=== PATIENT | male | born 1995 ===

== ENCOUNTER 2017-07-01 21:19 | Emergency (ER) | payer BC ==
[2017-07-01 23:03] VITALS: BP 135/93
[2017-07-02] MEDS ORDERED: TORADOL IM ONE (04:22)
--- NOTE | 2017-07-02 04:25 | Emergency Department Report ---
ED Headache HPI - General Chief Complaint: Headache Stated Complaint: H/A Time Seen by Provider: 07/02/17 03:14 Source: patient Exam Limitations: no limitations - History of Present Illness Initial Comments: This is a 21-year-old -[place] male who presents with a migraine that started around 1900. Patient reports pain is frontal and occipital region. It is constant and out of 10 on pain scale and nonradiating. He has not tried taking anything improved symptoms. Reports nausea and vomiting and sensitivity to light. Nausea and vomiting has resolved but he is currently still having sensitivity to light with headache. Denies visual changes, SOB, chest pain, and fever. Timing/Duration: 4-6 hours Quality: severe, throbbing Head Injury Location: frontal, occipital Recent Head Trauma: no recent headache/trauma Modifying Factors: improves with: exposure to light, rest Associated Symptoms: fever/chills Allergies/Adverse Reactions: Allergies No Known Allergies Allergy (Unverified 07/01/17 22:59) Home Medications: Ambulatory Orders Naproxen [Naprosyn] 500 mg PO BID PRN #20 tablet 07/02/17 ED Review of Systems ROS: Stated complaint: H/A Other details as noted in HPI Constitutional: denies: chills, fever ENT: denies: ear pain, throat pain, congestion Respiratory: denies: cough, shortness of breath, wheezing Cardiovascular: denies: chest pain, palpitations Gastrointestinal: nausea, vomiting. denies: abdominal pain, diarrhea Neurological: headache. denies: weakness, paresthesias Psychiatric: denies: anxiety, depression ED Past Medical Hx - Past Medical History Previous Medical History?: No - Surgical History Past Surgical History?: No - Social History Smoking Status: Current Every Day Smoker Substance Use Type: Alcohol - Medications Home Medications: Home Medications Medication Instructions Recorded Confirmed Last Taken Type Naproxen [Naprosyn] 500 mg PO BID PRN #20 tablet 07/02/17 Unknown Rx ED Physical Exam - General Limitations: No Limitations General appearance: alert, in no apparent distress - Neck Neck exam: Present: normal inspection - Respiratory Respiratory exam: Present: normal lung sounds bilaterally. Absent: respiratory distress, wheezes, rales, rhonchi, stridor, accessory muscle use - Cardiovascular Cardiovascular Exam: Present: regular rate, normal rhythm, normal heart sounds. Absent: systolic murmur, diastolic murmur, rubs, gallop - GI/Abdominal GI/Abdominal exam: Present: soft, normal bowel sounds. Absent: distended, tenderness, guarding, rebound, rigid, organomegaly, mass - Neurological Exam Neurological exam: Present: alert, oriented X3, normal gait - Psychiatric Psychiatric exam: Present: normal affect, normal mood - Skin Skin exam: Present: warm, dry, intact, normal color. Absent: rash ED Course Vital Signs 07/01/17 07/02/17 22:59 04:59 Temperature 98.4 F Pulse Rate 63 64 Respiratory 18 16 Rate Blood Pressure 135/93 O2 Sat by Pulse 99 98 Oximetry ED Medical Decision Making - Medical Decision Making This is a 21 y.o. male that presents with headache for 1 day. Patient is stable and was examined by me. Signs of distress noted. Given toradol 30 mg IM once in ER. Reports feeling better. Follow up with PCP. Start naproxen for migraine pain. Discharged home in stable condition. Follow up with PCP in 24-72 hours. Critical care attestation.: If time is entered above; I have spent that time in minutes in the direct care of this critically ill patient, excluding procedure time. ED Disposition Clinical Impression: Acute headache Qualifiers: Headache type: tension-type Intractability: intractable Qualified Code(s): G44.201 - Tension-type headache, unspecified, intractable Disposition: DC-01 TO HOME OR SELFCARE Is pt being admited?: No Does the pt Need Aspirin: No Condition: Stable Instructions: Acute Headache (ED) Additional Instructions: Take medication at start of headache. Minimize caffeine intake. Eat at scheduled times or 3 meals a day with snacks. Follow up with primary care provider in 24-72 hours. Prescriptions: Naproxen [Naprosyn] 500 mg PO BID PRN #20 tablet PRN Reason: Pain Forms: Work/School Release Form(ED) Time of Disposition: 04:34 Print Language: INDONESIAN
== END 2017-07-02 04:59 | disposition home or self-care (01) ==
LOC: ED 21:19
DX: G44.201 Tension-type headache, unspecified, intractable (principal); F17.200 Nicotine dependence, unspecified, uncomplicated
CPT/HCPCS: 96372; 99282; J1885